=== PATIENT | female | born 1980 | race Two or more races ===

== ENCOUNTER 2025-07-03 06:07 | Day surgery (SDC) | payer BC ==
[2025-06-30 10:47] LABS: Hematocrit 43.8 % (36.0-46.0); Hemoglobin 14.8 g/dL (12.2-16.2); Mean Corpuscular Hemoglobin 28.0 pg (28.0-32.0); Mean Corpuscular Volume 83.2 fL (80.0-100.0); Nucleated Red Blood Cells % 0.2 %
[2025-06-30 11:04] LABS: Alanine Aminotransferase 14 U/L (7-40); Alkaline Phosphatase 91 U/L (46-116); Anion Gap 11 (5-15); BUN/Creatinine Ratio 11.0 (10.0-20.0); Blood Urea Nitrogen 10 mg/dL (9-23); Calcium 9.1 mg/dL (8.7-10.4); Carbon Dioxide 30 mmol/L (20-31); Chloride 99 mmol/L (98-107); Glucose 85 mg/dL (74-106); Sodium 140 mmol/L (136-145); Total Protein 8.1 g/dL (5.7-8.2)
[2025-06-30 11:05] LABS: Albumin 4.7 g/dL (3.2-4.8); Bilirubin, Total 0.3 mg/dL (0.2-1.0); Potassium 2.6 mmol/L (3.5-5.1)
[2025-06-30 11:07] LABS: INR 1.0 (0.9-1.15); Partial Thromboplastin Time 29.3 SEC (24.5-34.5); Prothrombin Time 10.6 sec (9.3-11.8)
[2025-06-30 11:11] LABS: Urine Protein, UAD TRACE (Negative)
--- NOTE | 2025-07-01 15:30 | DVHHP ---
ADMIT DATE: 07/03/2025 CHIEF COMPLAINT: Unsatisfactory colposcopy, HPV positive. Here for LEEP. HISTORY OF PRESENT ILLNESS: The patient is a 45-year-old 3 para 3 admitted for LEEP cone biopsy secondary to unsatisfactory colposcopy. The patient HPV positive. Pap was normal. However, she has HPV 16. Subsequently, options were discussed with the patient. The patient wishes to proceed. LEEP biopsy. PAST MEDICAL HISTORY: Hypertension. PAST SURGICAL HISTORY: Tubal ligation. Hip surgery. SOCIAL HISTORY: None. FAMILY HISTORY: None. 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 REVIEW OF SYSTEMS: Consistent with HPI. PHYSICAL EXAMINATION: VITAL SIGNS: Stable, afebrile. HEENT: Within normal limits. CARDIOVASCULAR: Regular rate and rhythm. LUNGS: Clear to auscultation. BREASTS: Symmetrical. No masses. ABDOMEN: Soft, nontender. PELVIC: External genitalia within normal limits. Vagina normal. Cervix grossly normal appearing. Uterus 8 weeks size and adnexa nonpalpable. EXTREMITIES: No clubbing, cyanosis or edema. IMPRESSION: * HPV positive, high-risk HPV. * Unsatisfactory colposcopy. PLAN: LEEP cone biopsy. Informed consent obtained. Risks and complications of surgery including infection, bleeding, need for further surgery, risk of anesthesia were discussed with the patient. Options reviewed. Possibility of DVT and pulmonary embolus discussed with the patient. The patient wishes to proceed. DO ISAI Guerra/[place]AS TID: [id number] RECEIPT: [id number]
[~2025-07-03] VITALS: Ht 172.7 cm; Wt 78.5 kg
[~2025-07-03 06:07] MED LIST: AMLO1TAB21 PO; TRIA75TA11 PO
[2025-07-03] MEDS ORDERED: LIDOCAINE 1% INJ PF 5ML AMP IJ ONE (06:08)
[2025-07-03] MEDS ORDERED: POTASSIUM CHL 20MEQ/100ML 100 ML IV ONE (06:45)
[2025-07-03] MEDS ORDERED: HYDR-4072 PO (07:26)
[2025-07-03] MEDS ORDERED: IBUP-1456 PO (07:26)
[2025-07-03] MEDS ORDERED: SILVER NITRATE-POTAS NITRA STICK TOP ONE (08:10)
[2025-07-03] MEDS ORDERED: ZOFR4T PO (08:27)
[2025-07-03] MEDS: ceFAZolin 2 GM/D5W50ml 50 ML IV ONE (09:36)
[2025-07-03] MEDS ORDERED: MIDAZOLAM HCL 2MG/2ML 2ml VIAL (1mg/ml) ONE (09:41)
[2025-07-03] MEDS ORDERED: fentaNYL CITRATE 100 MCG/2 ML VL ONE (09:41)
[2025-07-03] MEDS ORDERED: PROPOFOL 10 MG/ML 20 ML IV ONE (09:41)
[2025-07-03] MEDS ORDERED: METOCLOPRAMIDE HCL 5MG/ml INJ 2ml VIAL ONE (09:42)
[2025-07-03] MEDS ORDERED: ONDANSETRON HCL 4 MG/2 ML VIAL ONE (09:42)
[2025-07-03] MEDS: IODINE STRONG 5% SOLN 473ML ONE (09:57)
[2025-07-03] MEDS ORDERED: SODIUM CHLORIDE LOCK 10 ML ONE (09:59)
[2025-07-03] MEDS: FERRIC SUBSULFATE TOPICAL SOLN 30 ML BTL ONE (10:12)
[2025-07-03 10:19] VITALS: PULSE 101; RESP 16; TEMP 98.9; O2SAT 100
[2025-07-03] MEDS ORDERED: ONDANSETRON HCL 4 MG/2 ML VIAL IV PRN (10:30)
[2025-07-03] MEDS ORDERED: METOCLOPRAMIDE HCL 5MG/ml INJ 2ml VIAL IV PRN (10:30)
[2025-07-03] MEDS ORDERED: ACETAMINOPHEN IV 1000 MG/100ML (10MG/ML) IV ONE (10:30)
[2025-07-03] MEDS ORDERED: hydrALAZINE HCL 20 MG/ML VL IV PRN (10:30)
[2025-07-03] MEDS ORDERED: HYDROmorphone HCL 2 MG/ML VL/or syr IV PRN (10:30)
[2025-07-03 10:45] VITALS: BP 111/71; PULSE 100; RESP 12; O2SAT 98
--- NOTE | 2025-07-03 12:03 | DVHDS2 ---
Physician Discharge Progress N Final Diagnosis: unsatisfactory colpo/high risk hpv Operations or Procedures: Operations or Procedures leep Condition on Discharge: Good Disposition: Home Discharge Instructions: Diet: Regular Activity: No Restrictions, As Tolerated Medications: laura berry Follow Up Care: Specialist: 1w Discharge Statement: "Patient was advised to return to the ER or call 911 if any headaches, dizziness, shortness of breath, chest pain, abdominal pain, bleeding, fevers, or worsening of medical condition. Patient was counseled about treatment plan, medications, possible side effects, patientverbalized understanding. All questions were answered to the best of my ability. This discharge took greater then 30 minutes in planning, reviewing documentation, counseling the patient, and discussing with other team members." Visit Coding OBGYN Date of Service: Jul 03, 2025 Billing Provider: MELQUIADES MCINTOSH DO MORGUE TECHNICIAN Common Visit Codes: 37768-[id number] OBS CARE (HIGH) MORGUE TECHNICIAN Procedure Codes: 86611-CHSI BX MELQUIADES MCINTOSH DO Jul 03, 2025 12:03
--- NOTE | 2025-07-03 12:05 | DVHOP2 ---
Operative Report DATE OF OPERATION: 07/03/25 PREOPERATIVE DIAGNOSES: high risk hpv ,unsatisfactory colpo POSTOPERATIVE DIAGNOSES:same SURGEON: Melquiades Lee D.O. ANESTHESIOLOGIST: ricki TYPE OF ANESTHESIA : MAC. CONSENT: The patient was informed of the risks and benefits of the procedure. The patient was informed of the risks and benefits of the procedure. These include but are not limited to , complications of anesthesia, postoperative infection, incomplete relief of symptoms, recurrence of symptoms, damage to blood vessels, nerves and tendons, deep venous thrombosis, pulmonary embolism and possible need for repeat surgery in the future. FINDINGS: External genitalia within normal limits. Vagina is normal. Cervix is grossly normal appearing. Uterus 8 weeks size. Adnexa were nonpalpable. SPECIMEN: Outer cervical biopsy, inner cervical biopsy, and endocervical biopsy. COMPLICATIONS: BLOOD PRODUCTS USED: None PROCEDURES: LEEP cone biopsy PROCEDURE IN DETAIL: The patient was taken to the operating room, where she was placed under MAC anesthesia. She was then prepped and draped in the usual sterile manner in dorsal lithotomy position. Bladder was emptied using a straight catheter. Examination under anesthesia revealed the above findings. A weighted speculum was placed in the vagina. Anterior lip of the cervix was grasped using a single tooth tenaculum. Cervix was bathed in Lugol's solution using 20 x 15 mm loop, outer side portion of cervix was circumferentially circumscribed, and second loop was used to excise the inner cervix. Endocervical curetting was performed. Three separate specimen was submitted. The denuded base was cauterized using ball cautery. Patient tolerated procedure well. Patient was taken to the recovery room in a stable condition. CONDITION: Stable ESTIMATED BLOOD LOSS: 50 mL Visit Coding OBGYN Date of Service: Jul 03, 2025 Billing Provider: MELQUIADES LEE DO ELECTRICAL LINEWORKER Common Visit Codes: 71384-[id number] OBS CARE (HIGH) ELECTRICAL LINEWORKER Procedure Codes: 67933-DRUY BX MELQUIADES LEE DO Jul 03, 2025 12:05
--- NOTE | 2025-07-03 12:07 | POSTOP ---
Post-Operative Note Post-Operative Note Preop Diagnosis high risk hpv,unsatif colpo Postop Diagnosis: unsatisfactory colpo/high risk hpv Operation performed leep Specimen cx Anesthesia: Mac Anesthesiologist: ricki Blood Loss(fluid mgmt) 50ml Surgeon Melquiades Lee Implant na Complications & Mgmt none Date 07/03/25 Time 12:05 Visit Coding OBGYN Date of Service: Jul 03, 2025 Billing Provider: MELQUIADES LEE DO POWER REACTOR OPERATOR Common Visit Codes: 26454-[id number] OBS CARE (HIGH) POWER REACTOR OPERATOR Procedure Codes: 50831-BSCW BX MELQUIADES LEE DO Jul 03, 2025 12:07
== END 2025-07-03 10:58 | disposition home or self-care (01) ==
LOC: SUR 06:07
PROVIDERS: ATTEND Obstetrics & Gynecology
DX: R87.810 Cervical high risk human papillomavirus (HPV) DNA test positive (principal); I10 Essential (primary) hypertension; Z98.51 Tubal ligation status; Z98.890 Other specified postprocedural states; Z79.899 Other long term (current) drug therapy
CPT/HCPCS: 36415; 57522; 80053; 81001; 81025; 84132; 84702; 85025; 85610; 85730; 86850; 86900; 86901; 88305; 88342; A4649; J0690; J2250; J2405; J2704; J2765; J3010; J3480